=== PATIENT | male | born 1990 | race Two or more races ===

== ENCOUNTER 2022-12-03 09:51 | Emergency (ER) | payer SELFPAY ==
--- NOTE | ~2022-12-03 | CT_ITS ---
EXAMINATION: CT lumbar spine wo con DATE: 12/03/2022 12:43 INDICATION: Low back pain TECHNIQUE: Computed tomography (CT) of the lumbar spine was performed without intravenous contrast. T he dose-length product (DLP) was 734.75 mGy-cm. Iterative reconstruction was used. COMPARISON: None FINDINGS: No fracture, dislocation, or subluxation. The vertebral body heights, alignment, and interv ertebral disc spaces are normal. The paravertebral soft tissues are unremarkable. IMPRESSION: 1. No acute osseous abnormality. Reviewed, dictated and finalized at location A.
[2022-12-03 09:53] VITALS: BP 134/87; PULSE 65; RESP 16; TEMP 36.4; O2SAT 100
--- NOTE | 2022-12-03 11:44 | ED.BACK ---
HPI - Back Pain/Injury General Chief Complaint: Back Pain/Injury Stated Complaint: Lower back pain Time Seen by Provider: 12/03/22 11:24 History of Present Illness HPI Narrative: 32-year-old male who speaks [place] here with his who is translating at patient's request for evaluation of low back pain x2 days. Patient states the pain began to develop slowly throughout the day and has progressed in severity since onset. The pain is present in his left lower back and is described as a soreness. States that the pain shoots down his left lower extremity and occasionally down his right lower extremity as well. He attempted Tylenol without relief of his symptoms. He denies any weakness in the legs, incontinence or retention of bowel or bladder, fevers or chills, trauma to the back. He denies recent increased exertion or activities. Has a history of sciatica. Related Data Allergies Allergy/AdvReac Type Severity Reaction Status Date / Time No Known Allergies Allergy Unverified 12/10/15 18:33 Review of Systems Review of Systems: Gen.: Denies fevers or chills Eyes: Denies eye pain or visual change ENT: Denies congestion Respiratory: Denies shortness of breath or cough CV: Denies chest pain or palpitations GI: Denies abdominal pain nausea, emesis or diarrhea denies burning, urgency, frequency or hematuria Musculoskeletal: Reports back pain. Neuro: Denies numbness, tingling, weakness or focal weakness Skin: Denies rash Except as documented, all other systems reviewed and negative Exam Narrative: APPEARANCE: lying face down on the stretcher, uncomfortable appearing Head: Normocephalic and atraumatic. EYES: PERRLA/EOMI, conjunctivae clear NOSE: No nasal drainage EARS: External ear normal in appearance THROAT: Oropharynx is clear. Mucous membranes are moist. NECK: Supple. No adenopathy, no masses. RESPIRATORY: Airway patent, respirations nonlabored. Clear to auscultation bilaterally, no rales, rhonchi, wheezing. CARDIOVASCULAR: 2+ DP and PT pulses bilaterally. Regular rate and rhythm without murmurs, rubs, or gallops. ABDOMINAL: Normoactive bowel sounds. Soft, nontender, nondistended. No rebound tenderness or guarding. MUSCULOSKELETAL: straight leg raise positive on the left. midline tenderness to l4. 5/5 strength in bilateral lower extremities. sensation intact throughout lower extremities. NEURO: Normal speech. No focal neurologic deficits. SKIN: Skin is warm and dry. No rashes. PSYCHIATRIC: Normal affect/mood. Course Vital Signs Vital signs: Vital Signs Temperature 97.6 F 12/03/22 09:53 Pulse Rate 65 12/03/22 09:53 Respiratory Rate 16 12/03/22 09:53 Blood Pressure 134/87 12/03/22 09:53 Pulse Oximetry 100 12/03/22 09:53 Oxygen Delivery Room Air 12/03/22 09:53 Temperature 97.6 F 12/03/22 09:53 Pulse Rate 72 12/03/22 13:48 Respiratory Rate 18 12/03/22 13:48 Blood Pressure 129/81 12/03/22 13:48 Pulse Oximetry 100 12/03/22 13:48 Oxygen Delivery Room Air 12/03/22 09:53 MDM - Back Pain/Injury MDM Narrative Medical decision making narrative: 32-year-old male here for evaluation of low back pain that radiates down his left lower extremity. This patient presents with back pain most consistent with sciatica. Differential diagnoses includes lumbago versus musculoskeletal spasm / strain. No back pain red flags on history or physical. Presentation not consistent with malignancy (lack of history of malignancy, lack of B symptoms), fracture (no trauma, no bony tenderness to palpation, normal L spine CT), cauda equina (no bowel or urinary incontinence/retention, no saddle anesthesia, no distal weakness), AAA, viscus perforation, osteomyelitis or epidural abscess (no IVDU, vertebral tenderness), renal colic, pyelonephritis (afebrile, no CVAT, no urinary symptoms). Patient feeling greatly improved after conservative measures in the ED. He is able to walk. Patient will be discharged home with
[2022-12-03] MEDS: CYCLOBENZAPRINE HCL 5 MG TABLET PO (11:52)
[2022-12-03] MEDS: KETOROLAC 30 MG/ML VIAL (*BKC) IM (11:53)
[2022-12-03] MEDS: HYDROcodone/acetaminophen (*CRX) 5-325 MG TABLET 1 TAB PO (13:34)
[2022-12-03 13:48] VITALS: BP 129/81; PULSE 72; RESP 18; O2SAT 100
== END 2022-12-03 13:51 | disposition home or self-care (01) ==
PROVIDERS: Emergency Provider Physician Assistant
DX: M54.16 Radiculopathy, lumbar region (principal)
CPT/HCPCS: 72131; 96372; 99284; A9270; J1100; J1885

== ENCOUNTER 2023-11-26 12:34 | Emergency (ER) | payer SELFPAY ==
--- NOTE | 2023-11-26 13:19 | PC.NURSE ---
called pt. no answer.
--- NOTE | 2023-11-26 13:27 | PC.NURSE ---
pt called multiple times for room assigment. pt not in lobby or outside of dept
== END 2023-11-26 13:27 | disposition left against medical advice (07) ==
LOC: ANHED 13:25
DX: M54.50 Low back pain, unspecified (principal)
CPT/HCPCS: 99199

== ENCOUNTER 2024-08-03 15:32 | Emergency (ER) | payer SELFPAY ==
[2024-08-03 15:48] VITALS: BP 137/78; PULSE 72; RESP 16; TEMP 36.8; O2SAT 100
--- NOTE | 2024-08-03 16:35 | PC.NURSE ---
Pt called to room x2 no answer. Not in waiting room or bathroom
--- NOTE | 2024-08-03 16:47 | PC.NURSE ---
Called pt to room. Not in waiting room or outside
== END 2024-08-03 16:47 | disposition left against medical advice (07) ==
DX: M54.9 Dorsalgia, unspecified (principal); V89.2XXA Person injured in unspecified motor-vehicle accident, traffic, initial encounter
CPT/HCPCS: 99199